=== PATIENT | female | born 1980 | race Caucasian/White ===

== ENCOUNTER 2022-06-15 20:23 | Emergency (ER) | payer SELFPAY ==
[2022-06-15 20:49] VITALS: BP 176/118
[2022-06-15] MEDS ORDERED: LORazepam 0.5 MG (ATIVAN) TABLET PO STA (20:49)
--- NOTE | 2022-06-15 20:56 | ED Back Pain ---
General Chief Complaint: Back Problems Stated Complaint: BACK PAIN Nursing Triage Note: pt presents with c/o lower back pain. reports just moving to the area and the bed she believes has caused her back issues. also report being off of her lexapro x1week. pt is tearful. Source of Information: Patient Exam Limitations: No Limitations History of Present Illness Date Seen by Provider: Jun 15, 2022 Time Seen by Provider: 20:31 Initial Comments Patient to the ER by private conveyance chief complaint of anxiety, panic attack and back pain. She says she moved appear to be with her fianc from [place] and because of a pharmacy issue her mom filled her meds in [place] so she cannot get them here for the past week she has been off her Lexapro. She does not take benzodiazepines. She has a history of anxiety. She has been on Lexapro for many years. She takes 10 mg daily. She also had her AC break today which has been making her miserable as well as her bed has been making her back hurt. She does not have a strong history of back pain nor did she take muscle relaxants. She did take and use her TENS unit from her neck but it was not working correctly. Has been using topical creams ice and heat as well as ibuprofen 2 to 4 tablets at a time. She has not having any numbness weakness saddle anesthesia or loss of control of bowel or bladder or trauma to her back. No previous surgery or imaging of her back. Allergies and Home Medications Allergies Coded Allergies: No Known Drug Allergies (Unverified , 06/15/22) Patient Home Medication List Home Medication List Reviewed: Yes Review of Systems Constitutional: see HPI; No chills, No fever EENTM: No ear discharge, No ear pain Respiratory: No cough, No short of breath Musculoskeletal: see HPI, back pain; No joint pain Psychiatric/Neurological: See HPI, Anxiety; Denies Headache, Denies Paresthesia All Other Systems Reviewed Negative Unless Noted: Yes Past Nttzami-Vuczyz-Ppjfis Hx Patient Social History Tobacco Use?: No Substance use?: No Alcohol Use?: No Pt feels they are or have been: No Immunizations Up To Date Influenza Vaccine Up-to-Date: No; Not Current First/Initial COVID19 Vaccinat: unknown date Second COVID19 Vaccination [place]: unknown date COVID19 Vaccine Stratigrapher: unknown Past Medical History Last Menstrual Period: May 18, 2022 Physical Exam Vital Signs Vital Signs - First Documented 06/15/22 20:49 Pulse 67 Resp 18 B/P (MAP) 176/118 (137) Pulse Ox 97 O2 Delivery Room Air Capillary Refill : Height, Weight, BMI Height: '" Weight: lbs. oz. kg; BMI Method: General Appearance: No Apparent Distress, Anxious HEENT: PERRL/EOMI, Pharynx Normal, Moist Mucous Membranes Neck: Full Range of Motion, Normal Inspection Cardiovascular: Regular Rate, Rhythm, Normal Peripheral Pulses Respiratory: Lungs Clear, Normal Breath Sounds, No Accessory Muscle Use, No Respiratory Distress Back: Normal Inspection, No Vertebral Tenderness, Muscle Spasm (Left para lumbar vertebral spasms) Extremity: Normal Inspection, Normal Range of Motion Neurologic/Psychiatric: Alert, Oriented x3 Skin: Normal Color, Warm/Dry Progress/Results/Core Measures Results/Orders My Orders Orders - ROM CRUZ Urine Bedside (06/15/22 20:36) Ketorolac Injection (Toradol Injection) (06/15/22 21:00) Lorazepam Tablet (Ativan Tablet) (06/15/22 20:49) Orphenadrine Inj (Ed Only) (Norflex Inje (06/15/22 21:00) Citalopram Tablet (Celexa Tablet) (06/15/22 20:49) Medications Given in ED Current Medications Medications Dose Ordered Sig/Teagan Route Start Time Stop Time Status Last Admin Dose Admin Ketorolac Tromethamine 60 mg ONCE ONCE IM 06/15/22 21:00 06/15/22 21:01 DC 06/15/22 21:00 60 MG Orphenadrine Citrate 60 mg ONCE ONCE IM 06/15/22 21:00 06/15/22 21:01 DC 06/15/22 21:00 60 MG Vital Signs/I&O 06/15/22 20:49 Pulse 67 Resp 18 B/P (MAP) 176/118 (137) Pulse Ox 97 O2 Delivery Room Air Blood Pressure Mean: 137 Progress Progress Note : Time: 21:11 Progress Note We will give her a tablet of citalopram 10 mg and Ativan 1 mg for her anxiety and to get her back on track. We will send out a prescription for some more Lexapro. If her bedside is negative then we will give her Toradol, Norflex and send her home with a prescription for cyclobenzaprine. Departure Impression Primary Impression: Lumbago Qualified Codes: M54.50 - Low back pain, unspecified Additional Impression: Anxiety about health Disposition: HOME, SELF-CARE Condition: Stable Departure-Patient Inst. Decision time for Depature: 21:16 Patient Instructions: LOCAL PHYSICIAN LIST, Low Back Pain (DC) Add. Discharge Instructions: Continue taking your Lexapro and get established with a primary care provider. Heat, back braces and topical creams such as icy hot or Biofreeze as well as patches like Salonpas or lidocaine can be helpful for back pain. Tylenol 1000 mg every 8 hours as needed for pain. Ibuprofen or naproxen. Ibuprofen to be taken 800 mg every 8 hours. Naproxen can be taken 2 tablets twice a day. Cyclobenzaprine is a muscle relaxant which can be used for muscle spasms in your back 1/2 to 1 tablet every 8 hours. Will cause drowsiness. All discharge instructions reviewed with patient and/or family. Voiced underst anding. Scripts Escitalopram Oxalate (Lexapro) 10 Mg Tablet 10 MG PO DAILY for 30 Days, #30 TAB 0 Refills Prov: ROM CRUZ 06/15/22 Cyclobenzaprine HCl (Cyclobenzaprine HCl) 10 Mg Tablet 10 MG PO Q8H PRN for SPASMS, #20 TAB 0 Refills Prov: ROM CRUZ 06/15/22 ROM CRUZ Jun 15, 2022 20:56
[2022-06-15] MEDS ORDERED: KETOROLAC 60 MG/2 ML VIAL IM ONE (21:00)
[2022-06-15] MEDS ORDERED: ORPHENADRINE 60 MG/2 ML (NORFLEX) AMP (ED ONLY) IM ONE (21:00)
[2022-06-15] MEDS ORDERED: CYCL10TA25 PO (21:19)
[2022-06-15] MEDS ORDERED: ESCI10TA PO (21:19)
== END 2022-06-15 21:30 | disposition home or self-care (01) ==
LOC: ER 20:27
DX: M54.50 Low back pain, unspecified (principal); F41.0 Panic disorder [episodic paroxysmal anxiety]; Z79.899 Other long term (current) drug therapy
CPT/HCPCS: 84703; 99283